=== PATIENT | male | born 1950 | race Hispanic/Latino ===

== ENCOUNTER 2017-03-26 10:05 | Emergency (ER) | payer MEDICARE, BC ==
[~2017-03-26 10:05] MED LIST: Iopamidol 370 76% 50 ML VIAL FS ONE
--- OUTSIDE RECORDS SUMMARY | 2017-03-26 10:08 | XMS | Clinical Summary ---
:1950 Author Organization [facility] Address [address] [place] [address] Phone Care Team Providers Name Role Phone Asked, No Primary Care Provider Unavailable Allergies Active Allergy Reactions Severity Noted Date Comments Sulfamethoxazole-Trimethoprim Rash Low 03/17/2017 Warfarin Rash Low 03/17/2017 Current Medications Prescription Sig. Disp. Refills Start Date End Date Status AMIODARONE HCL Take 100 mg by Active (AMIODARONE ORAL) mouth. aspirin (ECOTRIN) 81 MG Take 81 mg by mouth Active enteric coated tablet daily. atorvastatin (LIPITOR) 40 Take 40 mg by mouth Active MG tablet nightly. INSULIN SUBCUTANEOUS Inject 1 Units Active PUMP, HUMALOG, 100 under the skin UNITS/ML INSULIN PUMP continuously. INFUSION (HumaLOG) Active Problems Problem Noted Date Type 2 diabetes mellitus with diabetic chronic kidney disease 03/17/2017 Encounters Date Type Specialty Care Team Description 03/25/2017 Hospital Encounter Transplant Lazaro Baldwin MD 03/24/2017 Telephone Transplant Lupe Jin MA Confirming appt for tomorrow 03/23/2017 Documentation Transplant DomenicoYvonne padilla 03/16/2017 Telephone Transplant Addison Campos MA Referral - Kidney Txp from Last 3 Months Social History Tobacco Use Types Packs/Day Years Used Date Former Smoker Cigarettes 0.25 3 Quit: 1999 Smokeless Tobacco: Never Used Sex Assigned at Date Recorded Not on file Last Filed Vital Signs Vital Sign Reading Time Taken Blood Pressure - - Pulse - - Temperature - - Respiratory Rate - - Oxygen Saturation - - Inhaled Oxygen Concentration - - Weight 90.7 kg (200 lb) 03/17/2017 12:00 PM CDT Height 170.2 cm (5' 7") 03/17/2017 12:00 PM CDT Body Mass Index 31.32 03/17/2017 12:00 PM CDT Plan of Treatment Not on file Results Not on filefrom Last 3 Months Insurance Payer Benefit Plan / Group Subscriber ID Type Phone Address MEDICARE MEDICARE PART A AND B [id number] Medicare [place], [place] BCBS BCBS CHOICE PPO/[employer] EMPL PPO [id number] PPO Home: [id number] [phone] [phone] [id number] KIMBERLY SHERIDAN Transplant Self 1950 Home: [id number] [phone] [phone] [id number]
[2017-03-26 10:55] LABS: #Eosinphils 0.4 thou/uL (0.0-0.7); #Lymphocytes 0.4 thou/uL (1.20-3.40); #Monocytes 0.9 thou/uL (0.11-0.59); %Basophils 0.5 % (0.0-1.0); %Eosinophils 5.3 % (0.0-10.0); %Lymphocytes 6.3 % (21.0-51.0); %Monocytes 13.8 % (0.0-10.0); Hematocrit 31.4 % (42.0-52.0); Mean Platelet Volume 9.2 fL (7.4-10.4); Red Blood Cell (RBC) Count 3.43 mill/uL (4.70-6.10); White Blood Cell (WBC) Count 6.8 thou/uL (4.8-10.8)
[2017-03-26 10:59] LABS: PTT 36.6 SEC (22.9-36.1)
[2017-03-26 11:14] LABS: ALT (SGPT) 19 U/L (8-55); AST (SGOT) 34 U/L (5-34); Alkaline Phosphatase 409 U/L (40-150); Anion Gap 20 mmol/L (10-20); BUN (Urea Nitrogen) 45 mg/dL (8.4-25.7); Bilirubin, Total 1.5 mg/dL (0.2-1.2); CK (CPK) 94 U/L (30-200); Calc. Creatinine Clearance 0 mL/min (70-130); Calcium 8.2 mg/dL (7.8-10.44); Carbon Dioxide 28 mmol/L (23-31); Chloride 96 mmol/L (98-107); Estimated GFR-MDRD 9; Globulin 4.8 g/dL (2.4-3.5); Lipase 7 U/L (8-78); Protein, Total 7.7 g/dL (5.8-8.1)
--- NOTE | 2017-03-26 11:20 | RAD ---
SINGLE VIEW OF THE CHEST: COMPARISON: 03/18/17. HISTORY: Shortness of breath and dyspnea. The patient currently has shingles. FINDINGS: A single view of the chest shows an enlarged but stable cardiomediastinal silhouette. The lines and tubes are unchanged in position. There may be a small left pleural effusion. Vascular stents are seen in the left subclavian region. IMPRESSION: Small left pleural effusion. POS: [facility]
[2017-03-26] MEDS ORDERED: HYDROcodone/Acetaminophen 10/325 mg Tablet ONE (11:45)
--- NOTE | 2017-03-26 13:48 | CT ---
CT ABDOMEN AND PELVIS WITHOUT CONTRAST: HISTORY: Shortness of breath. Dialysis patient. Abdominal pain. COMPARISON: None. TECHNIQUE: Multiple contiguous axial images were obtained in a CT of the abdomen and pelvis without contrast. Coronal reformats were performed. Contrast was administered p.o. FINDINGS: The patient is status post cholecystectomy. There is a moderate amount of ascites in the abdomen. No obvious focal liver lesion is seen. The kidneys are small and atrophic with extensive vascular c alcifications in the renal arteries. The adrenal glands, spleen, and pancreas are unremarkable on t his limited noncontrast examination. No abdominal or pelvic lymphadenopathy is seen. The large and small bowel are unremarkable. 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 Mild degenerative changes are seen in the spine. The visualized inferior thorax is unremarkable. T here are small bilateral pleural effusions. IMPRESSION: 1. Moderate ascites. 2. No evidence of acute intraabdominal/pelvic abnormality. 3. Small bilateral pleural effusions. POS: [facility]
== END 2017-03-26 14:07 | disposition home or self-care (01) ==
LOC: ERS 10:05
DX: R06.00 Dyspnea, unspecified (principal); R10.9 Unspecified abdominal pain; B02.9 Zoster without complications; R14.0 Abdominal distension (gaseous); I12.0 Hypertensive chronic kidney disease with stage 5 chronic kidney disease or end stage renal disease; E11.22 Type 2 diabetes mellitus with diabetic chronic kidney disease; N18.6 End stage renal disease; Z87.891 Personal history of nicotine dependence; Z79.899 Other long term (current) drug therapy
CPT/HCPCS: 36415; 71010; 74176; 80053; 82550; 82553; 83690; 83880; 84484; 85025; 85610; 85730; 93005

== ENCOUNTER 2017-03-30 14:30 | Emergency (ER) | payer MEDICARE, BC ==
--- OUTSIDE RECORDS SUMMARY | 2017-03-30 14:34 | XMS | Clinical Summary ---
:1950 Author Organization [facility] Address [address] [place] [address] Phone Care Team Providers Name Role Phone [...] Address MEDICARE MEDICARE PART A AND B [id number] Medicare [place], [place] BCBS BCBS CHOICE PPO/[employer] EMPL PPO [id number] PPO KIMBERLY SHERIDAN Transplant Self 1950 Home: [phone] [phone] [address] [place] [address]
[2017-03-30] MEDS ORDERED: Sodium Bicarb 50 MEQ/50 ML Abboject 8.4% SYRINGE ONE ×2 (14:41→17:05)
[2017-03-30] MEDS ORDERED: Calcium Chloride 1 GM/10 ML Abboject SYRINGE ONE (17:05)
[2017-03-30] MEDS ORDERED: Lidocaine 2% Jelly 5 ML TUBE ONE (17:05)
[2017-03-30] MEDS ORDERED: EPINEPHrine 1 MG/10 ML Abboject SYRINGE ONE (17:05)
== END 2017-03-30 14:54 | disposition expired ==
LOC: ERS 14:30
DX: I46.9 Cardiac arrest, cause unspecified (principal); I12.0 Hypertensive chronic kidney disease with stage 5 chronic kidney disease or end stage renal disease; E11.22 Type 2 diabetes mellitus with diabetic chronic kidney disease; N18.6 End stage renal disease; I25.2 Old myocardial infarction; Z87.891 Personal history of nicotine dependence
CPT/HCPCS: 96374; 96375; J0171